=== PATIENT | female | born 1990 | race Caucasian/White ===

== ENCOUNTER 2022-12-20 19:55 | Observation (INO) | payer SELFPAY ==
[2022-12-20 21:44] LABS: BASO % 0.2 % (0-2.0); EOS % 0.2 % (0-4.5); HEMOGLOBIN 13.4 GM/dL (10.7-15.3); LYMPH % 10.2 % (8-40); MCH 30.2 pg (25.7-33.7); MCHC 35.3 g/dl (32.0-36.0); MEAN CELL VOLUME 85.6 fl (80-96); MEAN PLT VOLUME 8.4 fl (7.5-11.1); MONO % 5.9 % (3.8-10.2); NEUT % 83.5 % (42.8-82.8); PLATELET COUNT 247 10^3/uL (134-434); RBC 4.44 M/mm3 (3.60-5.2); RDW 12.7 % (11.6-15.6); WHITE BLOOD COUNT 12.4 K/mm3 (4.0-10.0)
[2022-12-20 22:03] LABS: POTASSIUM 3.6 mmol/L (3.5-5.1)
[2022-12-20] MEDS ORDERED: LORazepam 2 MG TABLET PO ONE (22:34)
[2022-12-20 22:40] LABS: BLOOD UREA NITROGEN 11.9 mg/dL (7-18)
[2022-12-20] MEDS ORDERED: LORazepam 1 MG TABLET ONE (23:01)
[2022-12-20 23:09] LABS: ALBUMIN 4.4 g/dl (3.4-5.0)
[2022-12-20 23:11] LABS: CREATININE 0.9 mg/dL (0.55-1.3)
[2022-12-20 23:13] LABS: BILIRUBIN,TOTAL 1.4 mg/dL (0.2-1); TOT PROT 7.3 g/dl (6.4-8.2)
[2022-12-20] MEDS ORDERED: ONDANSETRON *ODT* 4 MG TABLET SL ONE (23:49)
[2022-12-21] MEDS ORDERED: ONDANSETRON *ODT* 4 MG TABLET ONE (00:02)
[2022-12-21] MEDS ORDERED: NICOTINE 21 MG/24 HOURS TOPICAL PATCH TD ONE (01:00)
[2022-12-21] MEDS ORDERED: NICOTINE 21 MG/24 HOURS TOPICAL PATCH ONE (01:18)
[2022-12-21 07:12] LABS: BASO % 0.3 % (0-2.0); EOS % 0.9 % (0-4.5); HEMATOCRIT 36.3 % (32.4-45.2); HEMOGLOBIN 13.1 GM/dL (10.7-15.3); LYMPH % 31.7 % (8-40); MCH 30.5 pg (25.7-33.7); MCHC 36.2 g/dl (32.0-36.0); MEAN CELL VOLUME 84.2 fl (80-96); MEAN PLT VOLUME 8.5 fl (7.5-11.1); MONO % 8.6 % (3.8-10.2); NEUT % 58.5 % (42.8-82.8); PLATELET COUNT 237 10^3/uL (134-434); RBC 4.31 M/mm3 (3.60-5.2); RDW 12.5 % (11.6-15.6)
[2022-12-21 07:27] LABS: POTASSIUM 3.4 mmol/L (3.5-5.1)
[2022-12-21 07:29] LABS: CALCIUM 9.2 mg/dL (8.5-10.1)
[2022-12-21 07:30] LABS: ALBUMIN 4.3 g/dl (3.4-5.0); BLOOD UREA NITROGEN 10.7 mg/dL (7-18); MAGNESIUM 2.2 mg/dL (1.8-2.4)
[2022-12-21 07:32] LABS: PHOSPHOROUS 3.8 mg/dL (2.5-4.9)
[2022-12-21 07:33] LABS: CREATININE 0.8 mg/dL (0.55-1.3)
[2022-12-21 07:34] LABS: BILIRUBIN,TOTAL 1.9 mg/dL (0.2-1); TOT PROT 7.1 g/dl (6.4-8.2)
[2022-12-21] MEDS ORDERED: ENOXAPARIN NA (PORCINE) 40 MG/0.4 ML DISP.SYRIN SQ SCH (10:00)
[2022-12-21] MEDS ORDERED: NICOTINE 21 MG/24 HOURS TOPICAL PATCH TD SCH ×2 (10:00→11:30)
[2022-12-21] MEDS ORDERED: ACETAMINOPHEN 325 MG TABLET (FP) PO PRN (11:24)
[2022-12-21 12:45] VITALS: RESP 18; BMI 19.6
[2022-12-21] MEDS ORDERED: ALBUTEROL SO4 HFA INHALER IH PRN (15:01)
[2022-12-21 16:00] VITALS: BP 91/60; PULSE 83; TEMP 97.9
== END 2022-12-21 18:40 | disposition home or self-care (01) ==
LOC: JER 19:55 → JERBED 12-21 03:12 → J8W 12-21 07:14
PROVIDERS: ADMIT Internal Medicine; ATTEND Nurse Practitioner Family
CPT/HCPCS: 36415; 71045-TC-FY; 80053; 80307; 83735; 84100; 84439; 84443; 84703; 85025; 93005; 93010; 99285-25; C9803-CS; G0378; Q0162; U0003; U0005